=== PATIENT | female | born 2000 | race Caucasian/White ===

== ENCOUNTER 2022-03-05 23:40 | Emergency (ER) | payer MEDICAID, SELFPAY ==
[2022-03-05 23:49] VITALS: BP 122/81; PULSE 78; RESP 20; TEMP 36.7; O2SAT 98
--- NOTE | 2022-03-06 00:40 | W.ED.GENAD ---
Discharge Plan Disposition Patient Disposition: Home Condition: Improving Discharge Details Chief Complaint: DOCTOR OF NURSE ANESTHESIA Clinical Impression: Retained tampon Primary Care Provider: DIANNE GREGORY ED Provider: Parmjit Dubose Home Meds and New Rx's Prescriptions: No Action No Known Home Meds Discharge Instructions Instructions: Vaginal Foreign Body (ED) Additional Instructions: Please follow-up with your primary DOCTOR OF NURSE ANESTHESIA. Please return to the emergency department for any worsening symptoms. If you notice abnormal bleeding discharge fever abdominal pain nausea vomiting or other abnormal symptoms please return to the emergency department. Medical Decision Making 21-year-old female presents with retained tampon, forgot that she had a tampon and had sexual intercourse with her male partner, tampon abutting cervix, was removed with loop forceps, scant menstrual bleeding, no vaginal discharge. Hemodynamically stable afebrile. Given home care instructions and strict return precautions for signs of infection. We will follow-up with her primary DOCTOR OF NURSE ANESTHESIA otherwise will return to the emergency department for any further needs. Sign Out No HPI General Date/Time Provider Initiated Documentation: 03/05/22 23:47. HPI Narrative: 21-year-old female presents with retained tampon. For that that she had a tampon in and had sexual intercourse with her male partner. Denies discharge fevers or abdominal pain. Related Data Home Medications Medication Instructions Recorded Confirmed Unknown [No Known Home Meds] 03/05/22 03/05/22 Allergies Allergy/AdvReac Type Severity Reaction Status Date / Time diphenhydramine AdvReac Intermediate Unverified 03/05/22 23:53 [From Benadryl] General Stated Complaint: DOCTOR OF NURSE ANESTHESIA RAJ: 4 Review of Systems Narrative: Review of Systems Constitutional: negative Eyes: negative ENT: negative Cardiovascular: negative Respiratory: negative Gastrointestinal: negative : Retained tampon Musculoskeletal: negative Skin: negative Neurologic: negative Psych: negative PFSH All Active Problems (Updated 03/06/22 @ 00:43 by Parmjit Dubose MD) Retained tampon (Acute) Social History Smoking/Tobacco Use Status: Current every day Tobacco Type: e-cigarettes Smoking risk assessment performed?: Yes Alcohol Intake: current Alcohol Intake frequency: a few times a week Alcohol type: beer Drug use: Never Substance use type: does not use Do you feel safe at home: Yes Do you feel safe in your relationship?: Yes Exam Narrative Exam Narrative: Physical Examination General: alert, awake, cooperative, resting comfortably, no acute distress HEENT: normocephalic, atraumatic; PERRL, EOM intact, conjunctiva normal; no nasal discharge; moist mucous membranes, oral and pharyngeal mucosa normal, tolerating secretions Neck: supple, trachea midline; full ROM Chest: normal to inspection Respiratory: normal respiratory effort, speaking in full sentences, clear to auscultation, no wheezing, rales or rhonchi Cardiac: regular rate, regular rhythm, S1S2 intact, no murmurs rubs or gallops GI: abdomen soft, non-tender, non-distended; no palpable mass or hepatosplenomegaly : Retained tampon abutting cervix, no discharge, scant menstrual bleeding Skin: no lesions, rashes or trauma appreciated Neuro: AAOx3, normal speech, moving all extremities Psych: Appropriate mood and affect Course Vital Signs Vital signs: Vital Signs Temperature 36.7 C 03/05/22 23:49 Pulse 78 03/05/22 23:49 Respiratory Rate 20 03/05/22 23:49 Blood Pressure 122/81 03/05/22 23:49 Pulse Oximetry 98 03/05/22 23:49 Temperature 36.7 C 03/05/22 23:49 Temperature Source Temporal Artery Scan 03/05/22 23:49 Pulse 78 03/05/22 23:49 Respiratory Rate 20 03/05/22 23:49 Respiratory Effort 03/05/22 23:54 Blood Pressure 122/81 03/05/22 23:49 Blood Pressure Position Sitting 03/05/22 23:49 Pulse Oximetry 98 03/05/22 23:49 Oxygen Delivery Method Room Air 03/05/22 23:49 Oxygen Flow Rate 0 03/05/22 23:49 Pain Level 0 03/06/22 00:03
== END 2022-03-06 01:06 | disposition home or self-care (01) ==
PROVIDERS: Emergency Provider Emergency Medicine; PCP Physician Assistant
DX: T19.2XXA Foreign body in vulva and vagina, initial encounter (principal); X58.XXXA Exposure to other specified factors, initial encounter
CPT/HCPCS: 99281; 99282